=== PATIENT | female | born 1970 | race Two or more races ===

== ENCOUNTER 2024-01-16 10:58 | Emergency (ER) | payer OTHER ==
[~2024-01-16] VITALS: Ht 170.2 cm; Wt 100.8 kg
[2024-01-16 11:54] VITALS: BP 164/88; PULSE 88; RESP 16; TEMP 98.3; O2SAT 95
[2024-01-16] MEDS: methylPREDNISolone SOD SUCC 125 MG/2 ML VL IM ONE (12:07)
[2024-01-16] MEDS: HYDROcodone-ACET 10/325MG TAB PO ONE (12:07)
[2024-01-16] MEDS ORDERED: PRED20TA2 PO (12:49)
[2024-01-16] MEDS ORDERED: HYDR-4798 PO (12:49)
[2024-01-16] MEDS ORDERED: GABA-1250 PO (12:52)
== END 2024-01-16 12:58 | disposition home or self-care (01) ==
LOC: ER 10:58
DX: M51.17 Intervertebral disc disorders with radiculopathy, lumbosacral region (principal); Z86.73 Personal history of transient ischemic attack (TIA), and cerebral infarction without residual deficits
CPT/HCPCS: 72100; 96372; 99283; J2919